=== PATIENT | female | born 1970 | race Caucasian/White ===

== ENCOUNTER 2020-09-20 21:18 | Emergency (ER) | payer MEDICAID ==
[~2020-09-20] VITALS: Ht 147.3 cm; Wt 63.5 kg
[2020-09-20 21:20] VITALS: Ht 147.3 cm; Wt 63.5 kg
[2020-09-20 22:51] VITALS: BP 128/82
[2020-09-20] MEDS ORDERED: IBU400 M2 PO (23:32)
[2020-09-20] MEDS ORDERED: KEFLEX500 M1 PO (23:32)
== END 2020-09-20 23:48 | disposition home or self-care (01) ==
LOC: ED 21:18
DX: N39.0 Urinary tract infection, site not specified (principal); R07.81 Pleurodynia; Z88.5 Allergy status to narcotic agent; W18.30XA Fall on same level, unspecified, initial encounter; Y93.89 Activity, other specified; Y92.89 Other specified places as the place of occurrence of the external cause; Y99.8 Other external cause status
CPT/HCPCS: J1885